=== PATIENT | male | born 1980 | race Caucasian/White ===

== ENCOUNTER → 2019-05-13 14:26 | Outpatient (CLI) | payer SELFPAY ==
--- NOTE | 2019-05-13 14:35 | US_ITS ---
STUDY: SCROTUM ULTRASOUND REASON FOR EXAM: Male, 38 years old. Right testicular pain, bilateral swelling TECHNIQUE: Ultrasound evaluation of the scrotum was performed with color Doppler and static melvin-scale imaging. COMPARISON: None. FINDINGS: RIGHT TESTICLE INTRATESTICULAR: There is a normal size of the right testicle. The right testicle measures 5.0 x 4.9 x 2.3 cm. There is a homogenous echotexture. There is normal arterial and normal venous vascularity. There is no demonstrated right testicular mass or cyst. EXTRATESTICULAR: The epididymis is normal in size. The epididymis head measures 1.1 x 1.5 x 0.9 cm. There is normal vascularity of the epididymis. There is no demonstrated epididymal cystic structure. There is trace hydrocele. There is no demonstrated varicocele. There is no demonstrated extratesticular mass or cyst. LEFT TESTICLE INTRATESTICULAR: There is a normal size of the left testicle. The left testicle measures 5.1 x 3.4 x 2.6 cm. There is a homogenous echotexture. There is normal arterial and normal venous vascularity. There is no demonstrated left testicular mass or cyst. EXTRATESTICULAR: The epididymis is normal in size. The epididymis head measures 1.1 x 1.4 x 0.9 cm. There is normal vascularity of the epididymis. There is no demonstrated epididymal cystic structure. There is a small hydrocele with mild debris. There is no demonstrated varicocele. There is no demonstrated extratesticular mass or cyst. US/Testicular with Arterial Flow IMPRESSION: Normal bilateral testicles. Small hydrocele bilaterally, left slightly more complex and slightly larger than right. Electronically Signed: Marquis Brand DO at 22:29 EDT Tel [phone], Service support ,
== END ==
DX: N50.811 Right testicular pain (principal)
CPT/HCPCS: 76870; 93976